=== PATIENT | female | born 1955 | race Caucasian/White ===

== ENCOUNTER 2024-07-20 10:40 | Outpatient (AMB) | payer MEDICARE, SELFPAY ==
--- NOTE | 2024-07-20 10:42 | A.OFFVIS_ITS ---
Vital Signs 07/20/24 10:56 Weight 137 lb 2.04 oz BP 126/70 Blood Pressure Location Rt brachial Position Sitting Pulse 72 Pulse Source Pulse Oximeter Pulse Oximetry (%) 98 Oxygen Delivery Method Room Air Intake Visit Reasons: pre colonoscopy Intake Note: NEW PATIENT for [place] screening. Recall, 2nd lifetime? Prior hx of colo/egd? 2007. FMHx (Father) Noted. Chief Complaint; Pt denies any GI concerns at this time. Geriatric Care Manager Required: No Accompanied by: Self / Same As Patient Allergies cimetidine Allergy (Unknown, Verified 07/20/24 10:42) Unknown egg Allergy (Unknown, Verified 07/20/24 10:42) Unknown prochlorperazine [From Compazine] Allergy (Unknown, Verified 07/20/24 10:42) Unknown Sulfa (Sulfonamide Antibiotics) Allergy (Unknown, Verified 07/20/24 10:42) Unknown HPI HPI pre colonoscopy: Details: 69 year old? female with past medical history of hypothyroidism, hyperlipidemia, nicotine dependence, family history of CRC is here today for pre colonoscopy screening.? Patient was sent to us by her PCP.? Last colonoscopy over 10 years ago. Patient reports family history of CRC, patient's father was diagnosed with CRC. ? Patient denies any gastrointestinal symptoms in the past or at present.? ? Denies history of difficulty with sedation or anesthesia in the past.? Negative for history of sleep apnea.? Denies any history of cardiac, renal, pulmonary, or hepatic disease.?? No history of infectious? diseases like hepatitis A, B, C, HIV or tuberculosis.? Patient is not on any anticoagulation [facility] Medical History Family history of colon cancer in father Nicotine dependence Migraine Hypothyroidism Hyperlipidemia Surgical History H/O breast biopsy Hx of bilateral oophorectomy Hx of colonoscopy (~2007) Family History Father Colon cancer Maternal Grandmother Colon cancer Review of Systems Const Denies weight gain and Denies weight loss ENT Reports no additional complaints, Denies dysphagia and Denies odynophagia Card Reports no additional complaints Resp Reports no additional complaints GI Denies abdominal pain, Denies belching, Denies melena, Denies bloating, Denies change in bowel habits, Denies dysphagia, Denies excessive flatus, Denies dyspepsia, Denies heartburn, Denies diarrhea, Denies loose stools, Denies nausea, Denies odynophagia and Denies vomiting Musc Reports no additional complaints Neuro Reports no additional complaints Psych Reports no additional complaints Endo Reports no additional complaints Physical Exam Vital Signs: Last Vital Signs Pulse 72 07/20/24 10:56 BP 126/70 07/20/24 10:56 Pulse Ox 98 07/20/24 10:56 Oxygen Delivery Method Room Air 07/20/24 10:56 Const General: healthy appearing, no acute distress and well developed Nutritional Appearance: well nourished Orientation/consciousness: patient oriented x3 Resp Effort & Inspection: normal respiratory effort, able to speak in complete sentences, no tracheal deviation and symmetric chest movement Auscultation: clear to auscultation bilaterally Cardio Rate: regular rate GI Inspection: Yes normal to inspection and No distended Palpation (GI): Soft to palpation, not firm, nontender and No hepatosplenomegaly present Auscultation: normal bowel sounds General: Yes no CVA tenderness Back/Spine/Pelvis Back: no CVA tenderness Skin General skin exam: elasticity normal, turgor normal and dry skin Neuro General: patient oriented x3 Psych Appearance: grossly normal Mental Status: mental status grossly normal Assessment & Plan Assessment & Plan (1) Screen for colon cancer: Code(s): Z12.11 - Encounter for screening for malignant neoplasm of colon Plan Patient denies any GI, cardiac or respiratory symptoms.? Denies any issues with anesthesia in the past.? Denies any history of sleep apnea.? No history infectious diseases in the past or present.? Not on any anticoagulation thera py.? Family history of CRC.? Patient denies melena, hematochezia, unintentional weight loss or ribbon like stools.? Discussed at length the pre-procedure,? prep, diet & medications as well as what to expect prior, during and after the procedure.?? Stressed the importance of good bowel prep.? Recommended the use of Vaseline or Calmoseptine OTC & baby wipes with bowel movements to promote comfort.? ?Patient verbalizes understanding and agrees to plan of care.? She was given the opportunity to ask questions and all questions answered.? We will see her after the procedure.? Medications: New polyethylene glycol 3350 (Miralax) As directed by gastroenterology department at [facility] 238 grams PO ONCE 238 grams 0RF Z12.11 - Encounter for screening for malignant neoplasm of colon bisacodyl (Dulcolax (bisacodyl)) take 4 tabs at noon the day before your colonoscopy 20 mg (4 x 5 mg) PO ONCE 4 tabs 0RF constipation 1 day Z12.11 - Encounter for screening for malignant neoplasm of colon Coding Level of Care Code New Pt Level 3 (79602) Diagnoses Screen for colon cancer Z12.11 Time Spent (min) 40 Comment 30 minutes spent with patient and additional 10 minutes spent reviewing her records
[2024-07-20 10:56] VITALS: BP 126/70; PULSE 72; O2SAT 98
== END 2024-07-20 11:51 | disposition home or self-care (01) ==
PROVIDERS: PCP Internal Medicine; Visit Provider Nurse Practitioner Family
DX: Z01.818 Encounter for other preprocedural examination (principal); Z12.11 Encounter for screening for malignant neoplasm of colon
CPT/HCPCS: 99024

== ENCOUNTER → 2024-07-20 10:40 | Outpatient (BNVA) | payer MEDICARE, SELFPAY | PROVIDERS: PCP Internal Medicine; Visit Provider Nurse Practitioner Family | DX: Z12.11 Encounter for screening for malignant neoplasm of colon (principal) | CPT/HCPCS: 99212 ==

== ENCOUNTER 2025-01-19 09:03 | Day surgery (SDC) | payer MEDICARE, SELFPAY ==
[2025-01-19 09:14] VITALS: BMI 26.0
[2025-01-19 09:25] VITALS: BP 133/80; PULSE 65; RESP 18; TEMP 36.7; O2SAT 97
[2025-01-19] MEDS: Lactated Ringers 1,000 ML 80 ML IVCONT (10:01)
--- NOTE | 2025-01-19 10:35 | P.HPSUR_ITS ---
Pre-Procedural Eval Section A - 24 Hr Update-Section A only Date of Service: 01/19/25 Section B - Complete if H&P > 30 days Chief Complaint: screening Relevant Family History (Specify if Yes): Yes Relevant Social History: Tobacco Use Present Medications: see Short Stay Collaborative assessment Medical History: Significant History (Family history of colon cancer in father Nicotine dependence Migraine Hypothyroidism Hyperlipidemia) History of Previous Operations: Relevant previous surgery/procedure and date(s) ( H/O breast biopsy Hx of bilateral oophorectomy Hx of colonoscopy (~2007)) Allergies: Allergies Allergy/AdvReac Type Severity Reaction Status Date / Time prochlorperazine (From Allergy Severe Anaphylaxis Verified 01/19/25 10:07 Compazine) cimetidine Allergy Unknown Unknown Verified 01/19/25 09:16 Sulfa (Sulfonamide Allergy Unknown Unknown Verified 01/19/25 09:16 Antibiotics) egg AdvReac Intermediate Vomiting Verified 01/19/25 10:07 Review of Systems Sugical H&P ROS: Negative: Constitution, Cardiovascular, Respiratory, Neur ological, Psychiatric, Hem-Onc, Allergic/Immunologic, Gastrointestinal, Genitourinary, Musculoskeletal, Integumentary, Endocrine and Eyes/Ears/Nose/Throat Exam Surgical H&P Exam: Normal: HEENT, Normal: Heart, Normal: Lungs, Normal: Extremities, Normal: Abdomen, Normal: Skin and Normal: Neurological Plan Diagnosis/Plan: Unchanged I have reviewed the history and physical and performed a pertinent physical examination on my patient. No changes have occurred unless specified. Time Spent With Patient Time: Total time managing care of this patient today ____ minutes.
--- NOTE | 2025-01-19 11:03 | HO.ANESPROP2 ---
HPI - Anesthesia Eval Consult details Narrative: For colonoscopy [facility] Past Medical History Medical History Family history of colon cancer in father Nicotine dependence Migraine Hypothyroidism Hyperlipidemia Family History Family History Father Colon cancer Maternal Grandmother Colon cancer Family history of problems with anesthesia: No Surgical History Surgical History H/O breast biopsy Hx of bilateral oophorectomy Hx of colonoscopy (~2007) History of Problems with Anesthesia: No Social History Social History Are you a primary patient care nursing assistant to a significant other at home: No Do you presently have visiting nurse or other home services: No Patient Tobacco Use Status: Current everyday Tobacco user Tobacco use type: Cigarette Smoked in Last 30 Days: Yes Patient Interested in Nicotine Replacement: No Have you been hit, kicked, punched, or otherwise hurt by someone within the past year? If so, by whom?: No Are you DNR?: No Advance Directives: No Advance Directives Information Provided: Yes Poor oral hygiene: No Meds Allergies Allergy/AdvReac Type Severity Reaction Status Date / Time prochlorperazine (From Allergy Severe Anaphylaxis Verified 01/19/25 10:07 Compazine) cimetidine Allergy Unknown Unknown Verified 01/19/25 09:16 Sulfa (Sulfonamide Allergy Unknown Unknown Verified 01/19/25 09:16 Antibiotics) egg AdvReac Intermediate Vomiting Verified 01/19/25 10:07 Active Medications: Current Medications Lactated Ringer's (Lr) 1,000 mls @ 80 mls/hr IVCONT .[id number] [place] Last Admin: 01/19/25 10:01 Dose: 80 mls/hr Home Medications ?Medication ?Instructions ?Recorded ?Confirmed ?Last Taken ?Type conjugated estrogens 0.625 mg mg PO DAILY 07/20/24 Unknown History tablet (Premarin) levothyroxine 150 mcg tablet mcg PO DAILY 07/20/24 Unknown History zolmitriptan 5 mg tablet mg PO DAILY PRN Migraine Headache 07/20/24 Unknown History Exam Height,Weight and Vital Signs: Height 5 ft Weight 60.328 kg Last Vital Signs Temp 98.0 F 01/19/25 09:25 Pulse 65 01/19/25 09:25 Resp 18 01/19/25 09:25 BP 133/80 01/19/25 09:25 Pulse Ox 97 01/19/25 09:25 O2 Del Method Room Air 01/19/25 09:25 Airway Mallampati Class: II TM Dist: <=3cm Neck ROM: Full Loose/Missing/Broken Teeth: No Heart: ok Lungs: ok Assessment and Plan Assessment Anesthesia Assessment: Anesthesia Plan Discussed and Chart Reviewed Final Anesthetic Review Family History of Problems with Anesthesia: No History of Problems with Anesthesia: No NPO: Yes ASA Class: II Final Preanesthetic Review: No Changes in Pt Med Stat, Meds/Allgs Chart Reviewed, Consent Obtained/Reviewed and Anes Risks/Benef Reviewed Patient Risk: Low Procedure Risk: Low Anesthetic Plan Anesthetic Plan: MAC: and Agree w/ Assess. and Plan Disposition: Standard PACU
--- NOTE | 2025-01-19 11:48 | HO.OPN-COLON ---
Colonoscopy Operative Note Operative Note Date of Service: 01/19/25 Narrative: Operative Information Procedure Description: Colonoscopy Indication: FH of CRC, screening Anesthesia: MAC COLONOSCOPY Instrument: Olympus variable stiffness pediatric scope 190L Colonoscopy Monitoring: Vital signs and clinical assessment, continuous EKG monitoring, Pulse oximetry, Carbon Dioxide monitoring and blood pressure monitoring were done throughout the procedure. Colon withdrawal time was 23 minutes. Procedure: The patient was placed in the left lateral decubitis position and pre-procedure medications were administered. After a digital rectal examination of the ano-rectum, the video colonoscope was inserted into the rectum and advanced through the colon to the cecum/TI. The colonoscope was slowly withdrawn in a retrograde panoramic fashion and the colon mucosa was carefully examined including a retroflexed view of the rectum. Findings and interventions are described below. Procedure Difficulty: moderate Findings: Terminal Ileum-normal Cecum:normal Ascending Colon: x 2 sessile polyps 10-12 mm lifted with eleview and removed with cold snare, x 2 sessile polyps 5-7 mm removed with cold snare, x 1 sessile polyp 3-4 mm removed with cold forceps, mild diverticulosis Transverse Colon -normal Descending Colon:normal Sigmoid Colon: moderate diverticulosis, x1 sessile polyp removed with cold snare, x 1 semi pedunculated polyp 10 mm injected with few ml of epinephrine and removed with cold snare, with x 2 clips applied for hemostasis Rectum: Retroflexion with small internal hemorrhoids seen, grade I Anorectum - normal Intervention: cold snare, eleview injection, epinephrine injection, cold forceps Colon preparation: [place] Bowel Preparation Scale Right colon; 2 Transverse colon: 2 Left colon; 1-2 (0 = Unprepared colon segment with mucosa not seen due to solid stool that cannot be cleared. 1 = Portion of mucosa of the colon segment seen, but other areas of the colon segment not well seen due to staining, residual stool and/or opaque liquid. 2 = Minor amount of residual staining, small fragments of stool and/or opaque liquid, but mucosa of colon segment seen well. 3 = Entire mucosa of colon segment seen well with no residual staining, small fragments of stool or opaque liquid) Impression and Post Procedure Diagnosis: diverticulosis colon polyps x 7 internal hemorrhoids Plan: High fiber diet leaflet Avoid straining at stool, epsom salts and sitz bath, anusol supps or cream Repeat Colonoscopy in 1 year due to polyp burden and fair prep on left colon or earlier if clinically indicated Above findings were reviewed with the patient and relevant handouts were provided if indicated.
[2025-01-19 11:55] VITALS: BP 110/66; PULSE 87; RESP 16; TEMP 36.1; O2SAT 96
[2025-01-19 12:10] VITALS: BP 124/79; PULSE 75; RESP 20; TEMP 36.1; O2SAT 98
== END 2025-01-19 12:23 | disposition home or self-care (01) ==
PROVIDERS: PCP Internal Medicine; Visit Provider Internal Medicine Gastroenterology
PROC: 0DJD8ZZ Inspection of Lower Intestinal Tract, Via Natural or Artificial Opening Endoscopic (ICD-10-PCS; CPT 45378; principal; 2025-01-19 12:00)
DX: Z12.11 Encounter for screening for malignant neoplasm of colon (principal); D12.2 Benign neoplasm of ascending colon; D12.5 Benign neoplasm of sigmoid colon; K57.30 Diverticulosis of large intestine without perforation or abscess without bleeding; K64.0 First degree hemorrhoids; Z80.0 Family history of malignant neoplasm of digestive organs; E78.5 Hyperlipidemia, unspecified; E03.9 Hypothyroidism, unspecified; F17.210 Nicotine dependence, cigarettes, uncomplicated; Z79.899 Other long term (current) drug therapy
CPT/HCPCS: 45385; 45380; 45381; 88305; 88341; 88342; J2003; J2704; J3010

== ENCOUNTER → 2025-01-19 09:03 | Outpatient (BNV) | payer MEDICARE, SELFPAY | PROVIDERS: PCP Internal Medicine; Visit Provider Internal Medicine Gastroenterology | DX: Z12.11 Encounter for screening for malignant neoplasm of colon (principal); Z80.0 Family history of malignant neoplasm of digestive organs; D12.2 Benign neoplasm of ascending colon; D12.5 Benign neoplasm of sigmoid colon; K64.0 First degree hemorrhoids; K57.90 Diverticulosis of intestine, part unspecified, without perforation or abscess without bleeding | CPT/HCPCS: 45381; 45385 ==